=== PATIENT | male | born 1945 | race Caucasian/White ===

== ENCOUNTER 2016-09-01 00:19 | Emergency (ER) | payer MEDICARE ==
[~2016-09-01] VITALS: Ht 182.8 cm; Wt 80.7 kg
[~2016-09-01 00:19] MED LIST: ASPIRIN325 MG PO; GLUCOSAMINE; SIMVASTATIN40 MG PO
[2016-09-01 00:47] LABS: BASO # 0.1 10*3/uL (0.0-0.1); BASO % 0.5 % (0.0-1.0); EOS # 0.6 10*3/uL (0.0-0.4); EOS % 5.2 % (1.0-4.0); HEMOGLOBIN 15.8 g/dl (14.0-18.0); LYMPH # 3.7 10*3/uL (1.3-4.4); LYMPH % 34.2 % (27.0-41.0); MEAN CELL VOLUME 94.5 fl (80.0-94.0); MEAN CORPUSCULAR HGB 33.2 pg (27.0-31.0); MEAN CORPUSCULAR HGB CONC 35.1 g/dl (33.0-37.0); MEAN PLATELET VOLUME 9.7 fl (9.6-12.3); MONO # 0.9 10*3/uL (0.1-1.0); MONO % 8.4 % (3.0-9.0); NEUT # 5.6 10*3/uL (2.3-7.9); NEUT % 51.4 % (47.0-73.0); PLATELET COUNT AUTOMATED 211 10*3/uL (130-400); RED BLOOD COUNT 4.76 10*6/uL (4.50-5.90); RED CELL DISTRI WIDTH 12.3 % (0-14.5); WHITE BLOOD COUNT 10.9 10*3/uL (4.8-10.8)
[2016-09-01 00:59] LABS: PROTHROMBIN TIME 10.1 SECONDS (9.0-12.4)
[2016-09-01 01:09] LABS: ALBUMIN 3.8 gm/dl (3.1-4.5); ALKALINE PHOSPHATASE 57 U/L (45-117); BILIRUBIN, TOTAL 0.7 mg/dl (0.2-1.0); BUN 28 mg/dl (7-24); C-REACTIVE PROTEIN < 0.29 MG/DL (0-0.3); CARBON DIOXIDE 24 mmol/L (21-32); CHLORIDE 107 mmol/L (98-107); CKMB 4.4 ng/ml (0.5-3.6); CPK 119 U/L (39-308); EST GLOM FILT AFRICAN AMERICAN > 60 ml/min; GLUCOSE 110 mg/dL (65-99); MAGNESIUM 2.1 mg/dL (1.5-2.1); POTASSIUM 2.9 mmol/L (3.5-5.1); SGOT/AST 23 IU/L (3-35); SGPT/ALT 30 U/L (12-78); SODIUM 142 mmol/L (136-145); TOTAL PROTEIN 6.8 gm/dL (6.4-8.2); TROPONIN I < 0.015 ng/ml (<0.045)
[2016-09-01 02:44] LABS: LA>2 REFLEX 2 HR DRAW NOW
[2016-09-01] MEDS ORDERED: ZOFRAN ODT4 MG SL (03:38)
[2016-09-01] MEDS ORDERED: VERTICALM25 MG PO (03:38)
[2016-09-01] MEDS ORDERED: K-TAB20 MEQ PO (03:40)
== END 2016-09-01 04:10 | disposition home or self-care (01) ==
LOC: ED 00:19
PROVIDERS: Student in an Organized Health Care Education/Training Program
DX: H83.09 Labyrinthitis, unspecified ear (principal); E87.6 Hypokalemia; Z91.040 Latex allergy status; Z79.82 Long term (current) use of aspirin

== ENCOUNTER 2016-11-27 13:07 | Emergency (ER) | payer MEDICARE ==
[~2016-11-27] VITALS: Ht 180.3 cm; Wt 79.8 kg
[~2016-11-27 13:07] MED LIST changes: +K-TAB20 MEQ PO; +VERTICALM25 MG PO; +ZOFRAN ODT4 MG SL
[2016-11-27] MEDS ORDERED: METAMUCIL660 GM PO (13:24)
[2016-11-27] MEDS ORDERED: ASPIRIN81 M1 PO (13:24)
== END 2016-11-27 15:49 | disposition home or self-care (01) ==
LOC: ED 13:07
DX: S83.91XA Sprain of unspecified site of right knee, initial encounter (principal); M25.461 Effusion, right knee; Z79.82 Long term (current) use of aspirin; Z90.49 Acquired absence of other specified parts of digestive tract; X50.9XXA Other and unspecified overexertion or strenuous movements or postures, initial encounter; Y93.53 Activity, golf; Y92.39 Other specified sports and athletic area as the place of occurrence of the external cause; Y99.9 Unspecified external cause status